=== PATIENT | male | born 1960 | race African-American/Black ===

== ENCOUNTER 2017-07-26 00:49 | Emergency (ER) | payer SELFPAY ==
[2017-07-26] MEDS ORDERED: Acetaminophen 500 MG Tab PO ONE (01:12)
[2017-07-26] MEDS ORDERED: Sodium Chloride 0.9% 10 ML Syringe FLUSH PRN (01:12)
[2017-07-26] MEDS ORDERED: Sodium Chloride 0.9% 1,000 ML IV ONE ×2 (01:12→02:41)
[2017-07-26] MEDS ORDERED: Sodium Chloride 0.9% 2.5 ML Syringe FLUSH PRN (01:12)
[2017-07-26] MEDS ORDERED: Albuterol/Ipratropium 3.0-0.5 MG/3 ML Neb Soln NEB ONE (01:17)
--- NOTE | 2017-07-26 01:22 | EDM.PDOC ---
ED HPI GENERAL MEDICAL PROBLEM - General Chief Complaint: General Stated Complaint: FLU Time Seen by Provider: 07/26/17 01:04 - History of Present Illness INITIAL COMMENTS - FREE TEXT/NARRATIVE: HISTORY AND PHYSICAL: History of present illness: The patient is a 56-year-old male with a 2 to three-day history of fevers cough which is nonproductive congestion shortness of breath sore throat body aches and malaise. He says that he is sore from coughing and he has chest discomfort because of the cough. Patient has not had abdominal pain or vomiting but he does say that when he coughs very hard he will have some diarrhea. Patient did not get his influenza shot this year and says he has had "a touch of bronchitis " in the past and he does have a history of tobacco use. He has never been diagnosed with asthma or COPD. Patient has not taken any medications for fevers since yesterday late afternoon. He has used Mucinex only today. Patient has been hydrating with normal urine output. Patient says he feels like there is phlegm and congestion in his lungs but he can't get it up. Patient does not have a local family provider Review of systems: As per history of present illness and below otherwise all systems reviewed and negative. Past medical history: As per history of present illness and as reviewed below otherwise noncontributory. Surgical history: As per history of present illness and as reviewed below otherwise noncontributory. Social history: No reported history of drug or alcohol abuse. Family history: As per history of present illness and as reviewed below otherwise noncontributory. Physical exam: Gen.: Well-developed well-nourished man who is not breathless on my evaluation and his initial O2 sat on room air was 92%. His temp was 38.3 and he was tachycardic on my evaluation. HEENT: Atraumatic, normocephalic, pupils reactive, negative for conjunctival pallor or scleral icterus, mucous membranes tacky/pasty, throat clear, neck supple, nontender, trachea midline. There is no cervical adenopathy or nuchal rigidity Lungs: Diminished breath sounds at the bases and coarse breath sounds with rhonchi throughout with some expiratory wheezing, there is no gross work of breathing breath sounds equal bilaterally, chest nontender. Heart: S1S2, regular rhythm and tachycardic rate of my evaluation, negative for clicks, rubs, or JVD. Abdomen: Soft, nondistended, nontender. Negative for masses or hepatosplenomegaly. Family hypoactive bowel sounds and slight tympany on percussion of the upper abdomen Pelvis: Stable nontender. Genitourinary: Deferred. Rectal: Deferred. Extremities: Atraumatic, negative for cords or calf pain. Neurovascular unremarkable. No pedal edema Neuro: Awake, alert, oriented. Cranial nerves II through XII unremarkable. Cerebellum unremarkable. Motor and sensory unremarkable throughout. Exam nonfocal. Diagnostics: EKG CBC CMP influenza rapid strep lactic acid, blood cultures if indicated, chest x-ray Therapeutics: Tylenol IV O2 monitor IV fluids duo neb spacer and spacer teaching Solu-Medrol Motrin 0210: After the duo neb the patient is moving air much better and no longer has wheezing or coarse breath sounds. His O2 sats on room air are running 94-97% on my evaluation. He is currently still receiving IV fluids and he is still tachycardic which we will continue to monitor. He is aware that all testing results up to this point are negative. We will give him a spacer and spacer teaching as well as Solu-Medrol. Patient has been coughing in the emergency department which looks mostly white and is a little thick. His temp is still elevated I will give Motrin 0340: Heart rate is improved and patient is now afebrile. We will give spacer for albuterol at home as well as prednisone and antibiotics Impression: Acute bronchitis Definitive disposition and diagnosis as appropriate pending reevaluation and review of above. chest Pain Score (Numeric/FACES): 9 abdomen Pain Score (Numeric/FACES): 8 throat Pain Score (Numeric/FACES): 10 - Related Data Allergies Allergy/AdvReac Type Severity Reaction Status Date / Time No Known Allergies Allergy Verified 07/26/17 01:14 Home Meds: Home Meds . [No Known Home Meds] 07/26/17 [History] ED ROS GENERAL - Review of Systems Review Of Systems: ROS reveals no pertinent complaints other than HPI. ED EXAM, GENERAL - Physical Exam Exam: See Below (See dictation) Course - Vital Signs Last Recorded V/S: Last Vital Signs Temp 37.6 C 07/26/17 03:39 Pulse 113 H 07/26/17 03:39 Resp 18 07/26/17 03:39 BP 123/83 07/26/17 03:39 Pulse Ox 95 07/26/17 03:39 - Orders/Labs/Meds Orders: Active Orders 24 hr Category Date Time Status Cardiac Monitoring [RC] . DIRECTED Care 07/26/17 01:12 Active Communication Order [RC] STAT Care 07/26/17 02:17 Active EKG Documentation Completion [RC] STAT Care 07/26/17 01:12 Active Oxygen Therapy, ED [RC] ASDIRECTED Care 07/26/17 01:18 Active Pulse Oximetry [RC] ASDIRECTED Care 07/26/17 01:12 Active RT Aerosol Therapy [RC] ASDIRECTED Care 07/26/17 01:17 Active Chest 2V [CR] Stat Exams 07/26/17 01:12 Taken CULTURE STREP A CONFIRMATION [] Stat Lab 07/26/17 01:24 Results STREP SCRN A RAPID W CULT CONF [] Stat Lab 07/26/17 01:24 Results Sodium Chloride 0.9% [Saline Flush] Med 07/26/17 01:12 Active 10 ml FLUSH ASDIRECTED PRN Sodium Chloride 0.9% [Saline Flush] Med 07/26/17 01:12 Active 2.5 ml FLUSH ASDIRECTED PRN Saline Lock Insert [OM.PC] Stat Oth 07/26/17 01:12 Ordered Medication Orders Sodium Chloride (Saline Flush) 10 ml FLUSH ASDIRECTED PRN PRN Reason: Keep Vein Open Last Admin: 07/26/17 01:34 Dose: 10 ml Sodium Chloride (Saline Flush) 2.5 ml FLUSH ASDIRECTED PRN PRN Reason: Keep Vein Open Last Admin: 07/26/17 01:34 Dose: 2.5 ml Labs: Laboratory Tests 07/26/17 07/26/17 07/26/17 Range/Units 01:21 01:21 01:21 WBC 6.06 (4.0-11.0) K/uL RBC 5.71 (4.50-5.90) M/uL Hgb 15.4 (13.0-17.0) g/dL Hct 46.0 (38.0-50.0) % MCV 80.6 (80.0-98.0) fL MCH 27.0 (27.0-32.0) pg MCHC 33.5 (31.0-37.0) g/dL RDW Std Deviation 44.7 (28.0-62.0) fl RDW Coeff of Jj 15 (11.0-15.0) % Plt Count 175 (150-400) K/uL MPV 10.80 (7.40-12.00) fL Neut % (Auto) 85.3 H (48.0-80.0) % Lymph % (Auto) 8.7 L (16.0-40.0) % [place] % (Auto) 5.1 (0.0-15.0) % Eos % (Auto) 0.7 (0.0-7.0) % Baso % (Auto) 0.2 (0.0-1.5) % Neut # (Auto) 5.2 (1.4-5.7) K/uL Lymph # (Auto) 0.5 L (0.6-2.4) K/uL [place] # (Auto) 0.3 (0.0-0.8) K/uL Eos # (Auto) 0.0 (0.0-0.7) K/uL Baso # (Auto) 0.0 (0.0-0.1) K/uL Nucleated RBC % 0.0 /100WBC Nucleated RBCs # 0 K/uL Lactate 0.9 (0.20-2.00) mmol/L Sodium 136 (136-146) mmol/L Potassium 4.5 (3.5-5.1) mmol/L Chloride 103 (98-110) mmol/L Carbon Dioxide 25 (21-31) mmol/L BUN 14 (6.0-23.0) mg/dL Creatinine 1.1 (0.6-1.5) mg/dL Est Cr Clr Drug Dosing TNP Estimated GFR (MDRD) > 60.0 ml/min Glucose 124 H (60-110) mg/dL Calcium 9.1 (8.8-10.8) mg/dL Total Bilirubin 0.4 (0.1-1.5) mg/dL AST 36 (5-40) IU/L ALT 27 (8-54) IU/L Alkaline Phosphatase 91 (40-150) Total Protein 7.5 (6.0-8.0) g/dL Albumin 4.1 (3.5-5.0) g/dL Globulin 3.4 (2.0-3.5) g/dL Albumin/Globulin Ratio 1.2 L (1.3-2.8) Meds: Medications Generic Name Dose Route Start Last Admin Trade Name Freq PRN Reason Stop Dose Admin Sodium Chloride 10 ml 07/26/17 01:12 07/26/17 01:34 Saline Flush FLUSH 10 ml ASDIRECTED PRN Administration Keep Vein Open Sodium Chloride 2.5 ml 07/26/17 01:12 07/26/17 01:34 Saline Flush FLUSH 2.5 ml ASDIRECTED PRN Administration Keep Vein Open Discontinued Medications Generic Name Dose Route Start Last Admin Trade Name Freq PRN Reason Stop Dose Admin Acetaminophen 1,000 mg 07/26/17 01:12 07/26/17 01:33 Tylenol Extra Strength PO 07/26/17 01:13 1,000 mg ONETIME ONE Administration Albuterol/Ipratropium 3 ml 07/26/17 01:17 07/26/17 01:36 Duoneb 3.0-0.5 Mg/3 Ml NEB 07/26/17 01:18 3 ml ONETIME ONE Administration Sodium Chloride 1,000 mls @ 999 mls/hr 07/26/17 01:12 07/26/17 01:38 Normal Saline IV 07/26/17 02:12 999 mls/hr STAT ONE Administration Sodium Chloride 1,000 mls @ 999 mls/hr 07/26/17 02:41 07/26/17 02:47 Normal Saline IV 07/26/17 03:41 999 mls/hr STAT ONE Administration Ibuprofen 800 mg 07/26/17 02:41 07/26/17 02:46 Motrin PO 07/26/17 02:42 800 mg ONETIME ONE Administration Methylprednisolone Sodium Succinate 125 mg 07/26/17 02:12 07/26/17 02:23 Solu-Medrol IVPUSH 07/26/17 02:13 125 mg ONETIME ONE Administration Departure - Departure Time of Disposition: 03:43 Disposition: Home, Self-Care 01 Condition: Good Clinical Impression: Acute bronchitis with bronchospasm - Discharge Information Referrals: PCP,None [Primary Care Provider] - Forms: ED Department Discharge Additional Instructions: The following information is given to patients seen in the emergency department who are being discharged to home. This information is to outline your options for follow-up care. We provide all patients seen in our emergency department with a follow-up referral. The need for follow-up, as well as the timing and circumstances, are variable depending upon the specifics of your emergency department visit. If you don't have a primary care physician on staff, we will provide you with a referral. We always advise you to contact your personal physician following an emergency department visit to inform them of the circumstance of the visit and for follow-up with them and/or the need for any referrals to a consulting specialist. The emergency department will also refer you to a specialist when appropriate. This referral assures that you have the opportunity for followup care with a specialist. All of these measure are taken in an effort to provide you with optimal care, which includes your followup. Under all circumstances we always encourage you to contact your private physician who remains a resource for coordinating your care. When calling for followup care, please make the office aware that this follow-up is from your recent emergency room visit. If for any reason you are refused follow-up, please contact the [facility] emergency department at and ask to speak to the emergency department charge nurse. [facility] Primary care- Internal Medicine and [place] [phone] Please push hydration and use [id number] Tylenol or ibuprofen for fevers/ elevated temperature. Please try to reduce and/or stop smoking. Please call our clinic tomorrow for a follow-up appointment and return to ER as needed and as discussed. You have been prescribed an albuterol inhaler from [employer] and had been given a spacer for use. You have also been given prednisone and please take all prescriptions as directed. You have also been given Zithromax. - My Orders Last 24 Hours: My Active Orders 07/26/17 01:12 Cardiac Monitoring [RC] . DIRECTED EKG Documentation Completion [RC] STAT Pulse Oximetry [RC] ASDIRECTED Chest 2V [CR] Stat Sodium Chloride 0.9% [Saline Flush] 10 ml FLUSH ASDIRECTED PRN Sodium Chloride 0.9% [Saline Flush] 2.5 ml FLUSH ASDIRECTED PRN Saline Lock Insert [OM.PC] Stat 07/26/17 01:17 RT Aerosol Therapy [RC] ASDIRECTED 07/26/17 01:18 Oxygen Therapy, ED [RC] ASDIRECTED 07/26/17 01:24 CULTURE STREP A CONFIRMATION [RM] Stat STREP SCRN A RAPID W CULT CONF [RM] Stat 07/26/17 02:17 Communication Order [RC] STAT - Assessment/Plan Last 24 Hours: My Active Orders 07/26/17 01:12 Cardiac Monitoring [RC] . DIRECTED EKG Documentation Completion [RC] STAT Pulse Oximetry [RC] ASDIRECTED Chest 2V [CR] Stat Sodium Chloride 0.9% [Saline Flush] 10 ml FLUSH ASDIRECTED PRN Sodium Chloride 0.9% [Saline Flush] 2.5 ml FLUSH ASDIRECTED PRN Saline Lock Insert [OM.PC] Stat 07/26/17 01:17 RT Aerosol Therapy [RC] ASDIRECTED 07/26/17 01:18 Oxygen Therapy, ED [RC] ASDIRECTED 07/26/17 01:24 CULTURE STREP A CONFIRMATION [RM] Stat STREP SCRN A RAPID W CULT CONF [RM] Stat 07/26/17 02:17 Communication Order [RC] STAT
[2017-07-26 01:53] LABS: CHLORIDE,CL 103 mmol/L (98-110); SODIUM,NA 136 mmol/L (136-146)
[2017-07-26] MEDS ORDERED: methylPREDNISolone Sodium Succinate 125 MG/2 ML SDV IVPUSH ONE (02:12)
[2017-07-26] MEDS ORDERED: Ibuprofen 800 MG Tab PO ONE (02:41)
--- NOTE | 2017-07-26 10:50 | CR ---
EXAM DATE: 07/26/17 PATIENT'S AGE: 56 Patient: BEATA SALINAS Facility: [place], [place] Site . Site : 1960 Study: XRay Chest [id number]/8/2018 2:01:46 AM Ordering Physician: Washington Ardon Final Report: Indication: Cough. Shortness of breath Technique: Chest 2 views Comparison: None Findings/Impression: Cardiovascular and mediastinum: Heart size and vasculature are normal in caliber and appearance. Mediastinum is within normal limits. Lungs and pleural spaces: No consolidation or pleural effusions. A small nodular opacity in the lateral right base could represent a granuloma. Followup to ensure stability. Bones and soft tissues: No significant findings. Dictated by Maciej Spears MD @ 07/26/2017 2:42:58 AM Dictated by: Maciej Spears MD @ 07/26/2017 02:43:02 (Electronic Signature) Report Signed by Proxy. BOBBY
== END 2017-07-26 04:01 | disposition home or self-care (01) ==
LOC: MW.ED 00:49
DX: J20.9 Acute bronchitis, unspecified (principal)
CPT/HCPCS: 36415; 71046; 80053; 83605; 85025; 87081; 87804; 87880; 93005; 94640; 96361; 96374; 99285; A9270; J2930; J7040; 99284

== ENCOUNTER 2017-08-17 17:08 | Emergency (ER) | payer BC ==
[2017-08-17] MEDS ORDERED: cefTRIAXone 250 MG Vial IM ONE (18:18)
[2017-08-17] MEDS ORDERED: Azithromycin 250 MG Tab PO ONE (18:18)
--- NOTE | 2017-08-17 18:18 | EDM.PDOC ---
<Reva Delarosa - Last Filed: 08/17/17 18:46> ED HPI GENERAL MEDICAL PROBLEM - General Chief Complaint: Genitourinary Problem Stated Complaint: SWOLLEN TESTICLE Time Seen by Provider: 08/17/17 17:50 - History of Present Illness INITIAL COMMENTS - FREE TEXT/NARRATIVE: Dr. Delarosa dictating addendum note as a supervising physician on this case. I agree with history physical as above and he personally evaluated the patient. On my evaluation the testicles themselves appear to be of normal size and are not swollen or specifically tender but the scrotal skin is very thickened bilaterally left greater than right. I do not feel any areas of fluctuance or any discrete masses or lesions but more of a generalized thickening and induration. We will proceed with testing as above and disposition accordingly. - Related Data Allergies Allergy/AdvReac Type Severity Reaction Status Date / Time No Known Allergies Allergy Verified 08/17/17 17:16 Home Meds: Home Meds . [No Known Home Meds] 07/26/17 [History] Course - Vital Signs Last Recorded V/S: Last Vital Signs Temp 98.8 F 08/17/17 17:18 Pulse 97 08/17/17 17:18 Resp 16 08/17/17 17:18 BP 166/103 H 08/17/17 17:18 Pulse Ox 98 08/17/17 17:18 - Orders/Labs/Meds Orders: Active Orders 24 hr Category Date Time Status Scrotal Duplex Ltd [US] Routine Exams 08/17/17 17:48 Taken Scrotum and Contents [US] Stat Exams 08/17/17 17:48 Taken CHLAMYDIA AND GONORRHEA BY TMA Stat Lab 08/17/17 18:31 Received CULTURE URINE [RM] Stat Lab 08/17/17 18:31 Received HERPES SIMPLEX VIR 1,2 IGG/IGM [REF] Stat Lab 08/17/17 18:22 Received Labs: Laboratory Tests 08/17/17 Range/Units 18:31 Urine Color YELLOW Urine Appearance CLEAR Urine pH 6.5 (5.0-8.0) Ur Specific [place] 1.025 (1.001-1.035) Urine Protein NEGATIVE (NEGATIVE) mg/dL Urine Glucose (UA) NEGATIVE (NEGATIVE) mg/dL Urine Ketones TRACE H (NEGATIVE) mg/dL Urine Occult Blood NEGATIVE (NEGATIVE) Urine Nitrite NEGATIVE (NEGATIVE) Urine Bilirubin NEGATIVE (NEGATIVE) Urine Urobilinogen 2.0 H (<2.0) EU/dL Ur Leukocyte Esterase NEGATIVE (NEGATIVE) Urine RBC 0-1 (0-2/HPF) Urine WBC 0-1 (0-5/HPF) Ur Epithelial Cells RARE (NONE-FEW) Urine Bacteria RARE (NEGATIVE) Meds: Medications Discontinued Medications Generic Name Dose Route Start Last Admin Trade Name Parth PRN Reason Stop Dose Admin Azithromycin 1,000 mg 08/17/17 18:18 Zithromax PO 08/17/17 18:19 ONETIME ONE Ceftriaxone Sodium 250 mg 08/17/17 18:18 Rocephin IM 08/17/17 18:19 ONETIME ONE Departure - Departure Disposition: Home, Self-Care 01 Clinical Impression: Epididymitis - Discharge Information Instructions: Epididymitis Referrals: PCP,None [Primary Care Provider] - Forms: ED Department Discharge Care Plan Goals: The following information is given to patients seen in the emergency department who are being discharged to home. This information is to outline your options for follow-up care. We provide all patients seen in our emergency department with a follow-up referral. The need for follow-up, as well as the timing and circumstances, are variable depending upon the specifics of your emergency department visit. If you don't have a primary care physician on staff, we will provide you with a referral. We always advise you to contact your personal physician following an emergency department visit to inform them of the circumstance of the visit and for follow-up with them and/or the need for any referrals to a consulting specialist. The emergency department will also refer you to a specialist when appropriate. This referral assures that you have the opportunity for follow-up care with a specialist. All of these measure are taken in an effort to provide you with optimal care, which includes your follow-up. Under all circumstances we always encourage you to contact your private physician who remains a resource for coordinating your care. When calling for follow-up care, please make the office aware that this follow-up is from your recent emergency room visit. If for any reason you are refused follow-up, please contact the [facility] Emergency Department at and asked to speak to the emergency department charge nurse. [facility] Primary Care [address] [place] [phone] Please call the above number to set up an appointment with primary care provider within one week following discharge from the ER. - My Orders Last 24 Hours: My Active Orders 08/17/17 17:48 Scrotal Duplex Ltd [US] Routine Scrotum and Contents [US] Stat 08/17/17 18:22 HERPES SIMPLEX VIR 1,2 IGG/IGM [REF] Stat 08/17/17 18:31 CHLAMYDIA AND GONORRHEA BY TMA Stat CULTURE URINE [RM] Stat - Assessment/Plan Last 24 Hours: My Active Orders 08/17/17 17:48 Scrotal Duplex Ltd [US] Routine Scrotum and Contents [US] Stat 08/17/17 18:22 HERPES SIMPLEX VIR 1,2 IGG/IGM [REF] Stat 08/17/17 18:31 CHLAMYDIA AND GONORRHEA BY TMA Stat CULTURE URINE [RM] Stat <Thad Edwards - Last Filed: 08/17/17 19:08> ED HPI GENERAL MEDICAL PROBLEM - General Source of Information: Reports: Patient History Limitations: Reports: No Limitations - History of Present Illness INITIAL COMMENTS - FREE TEXT/NARRATIVE: HISTORY AND PHYSICAL: History of present illness: 56-year-old male presents to the ER with a chief complaint of a mass on the left side of the scrotum and also bumps on the right side of his scrotum. The mass on the left side of the scrotum has been present since Sunday and has gotten bigger over the last 4 days. Patient has never had this type of bump in the scrotum before. He has no history of STDs. Has not been sexually active over the past 3 months. When he is sexually active, the patient does use condoms. He denies any dysuria or hematuria or increased frequency/urgency. He denies any discharge from the head of the penis. Patient also has small bumps on the right side of his scrotum. At times it is pruritic and the patient will apply cortisone cream which does help with the itching. He notes that the rash seems to be getting worse. Again, he denies any history of genital herpes. Patient is also told that his blood pressure today is 166/103. He states that he does have a history of high blood pressure but has never been on medication. He thinks his blood pressure is high secondary to being in the ER. He denies any chest pain, palpitations, vision problems, headache, neurological deficits. Review of systems: As per history of present illness and below otherwise all systems reviewed and negative. Past medical history: As per history of present illness and as reviewed below otherwise noncontributory. Surgical history: As per history of present illness and as reviewed below otherwise noncontributory. Social history: No reported history of drug or alcohol abuse. Family history: As per history of present illness and as reviewed below otherwise noncontributory. Physical exam: HEENT: Atraumatic, normocephalic, pupils reactive, negative for conjunctival pallor or scleral icterus, mucous membranes moist, throat clear, neck supple, nontender, trachea midline. Lungs: Clear to auscultation, breath sounds equal bilaterally, chest nontender. Heart: S1S2, regular, negative for clicks, rubs, or JVD. Abdomen: Soft, nondistended, nontender. Negative for masses or hepatosplenomegaly. Negative for costovertebral tenderness. Pelvis: Stable nontender. Genitourinary: Left testicle with palpation does appear normal. The masses appear to be in the scrotum and not on the testicle. It is not tender to palpation. There are some small bumps on the right side of the scrotum. it does have the appearance of genital herpes. No bleeding or discharge appreciated from the lesions. Neuro: Awake, alert, oriented. Cranial nerves II through XII unremarkable. Cerebellum unremarkable. Motor and sensory unremarkable throughout. Exam nonfocal. Diagnostics: Gonorrhea and Chlamydia, herpes, UA with urine culture, scrotal ultrasound Scrotal ultrasound shows possible epididymitis. Therapeutics: 250 mg IM of Rocephin and 1 g of azithromycin by mouth. Impression: #1. Epididymitis Plan: #1. Patient was given a 250 mg IM injection of Rocephin and 1 g of azithromycin by mouth. #2. Patient will be set up with a PCP and follow-up within 1 week of this ER visit. Definitive disposition and diagnosis as appropriate pending reevaluation and review of above. Past Medical History - Past Health History Medical/Surgical History: Denies Medical/Surgical History Cardiovascular History: Reports: Hypertension Respiratory History: Reports: Bronchitis, Recurrent - Past Surgical History Cardiovascular Surgical History: Reports: None Social & Family History - Family History Family Medical History: Noncontributory - Tobacco Use Smoking Status *Q: Current Every Day Smoker Years of Tobacco use: 35 Packs/Tins Daily: 0.5 - Caffeine Use Caffeine Use: Reports: Coffee - Recreational Drug Use Recreational Drug Use: No ED ROS GENERAL - Review of Systems Review Of Systems: ROS reveals no pertinent complaints other than HPI. ED EXAM, RENAL/ - Physical Exam Exam: See Below Text/Narrative:: See dictation Course - Orders/Labs/Meds Labs: Laboratory Tests 08/17/17 Range/Units 18:31 Urine Color YELLOW Urine Appearance CLEAR Urine pH 6.5 (5.0-8.0) Ur Specific [place] 1.025 (1.001-1.035) Urine Protein NEGATIVE (NEGATIVE) mg/dL Urine Glucose (UA) NEGATIVE (NEGATIVE) mg/dL Urine Ketones TRACE H (NEGATIVE) mg/dL Urine Occult Blood NEGATIVE (NEGATIVE) Urine Nitrite NEGATIVE (NEGATIVE) Urine Bilirubin NEGATIVE (NEGATIVE) Urine Urobilinogen 2.0 H (<2.0) EU/dL Ur Leukocyte Esterase NEGATIVE (NEGATIVE) Urine RBC 0-1 (0-2/HPF) Urine WBC 0-1 (0-5/HPF) Ur Epithelial Cells RARE (NONE-FEW) Urine Bacteria RARE (NEGATIVE) Meds: Medications Discontinued Medications Generic Name Dose Route Start Last Admin Trade Name Freq PRN Reason Stop Dose Admin Azithromycin 1,000 mg 08/17/17 18:18 Zithromax PO 08/17/17 18:19 ONETIME ONE Ceftriaxone Sodium 250 mg 08/17/17 18:18 Rocephin IM 08/17/17 18:19 ONETIME ONE Departure - Departure Time of Disposition: 19:00 Condition: Good
[2017-08-17] MEDS ORDERED: Lidocaine 1% 4 ML ONE (19:10)
--- NOTE | 2017-08-20 05:12 | US ---
EXAM DATE: 08/17/17 PATIENT'S AGE: 56 Patient: BEATA SALINAS Facility: [place], [place] Site . Site : 1960 Study: US Testicle Left left scrotal mass-08/17/2017 6:24:54 PM Ordering Physician: Grace Oneil Final Report: INDICATION: Left scrotal mass. TECHNIQUE: Grayscale and color Doppler sonography performed. FINDINGS: The right testicle is 3.8 x 2.2 x 3.1 cm for a volume of 17.7 cc. There is no right testicular mass identified. Normal-appearing color flow is present. The right epididymis is normal. The left testicle is 4.5 x 1.9 x 4.1 cm with a volume of 23.7 cc. There is a hypoechoic, heterogeneous area within the left scrotum measuring 2.3 x 1.1 x 2.1 cm with increased surrounding color flow. This could represent an area of inflammation such as epididymitis. An extratesticular mass is not excludable. Therefore, follow-up ultrasound examination recommended in a reasonable time. No hydrocele/varicocele. IMPRESSION: 1. Normal ultrasound appearance of the testicles bilaterally. 2. Small heterogeneous predominantly hypoechoic mass in the left scrotum with increased color flow. Considerations would include epididymitis or extratesticular mass. Follow-up ultrasound examination recommended, such as 3-4 weeks at her or sooner, if clinically indicated. Dictated by Víctor Solorzano MD @ Aug 17 2017 6:29PM (Electronic Signature) Report Signed by Proxy. BOBBY
--- NOTE | 2017-08-20 05:13 | US ---
EXAM DATE: 08/17/17 PATIENT'S AGE: 56 Patient: BEATA SALINAS Facility: [place], [place] Site . Site : 1960 Study: US Testicle Left left scrotal mass-08/17/2017 6:24:54 PM Ordering Physician: Grace Oneil Final Report: INDICATION: Left scrotal mass. TECHNIQUE: Grayscale and color Doppler sonography performed. FINDINGS: The right testicle is 3.8 x 2.2 x 3.1 cm for a volume of 17.7 cc. There is no right testicular mass identified. Normal-appearing color flow is present. The right epididymis is normal. The left testicle is 4.5 x 1.9 x 4.1 cm with a volume of 23.7 cc. There is a hypoechoic, heterogeneous area within the left scrotum measuring 2.3 x 1.1 x 2.1 cm with increased surrounding color flow. This could represent an area of inflammation such as epididymitis. An extratesticular mass is not excludable. Therefore, follow-up ultrasound examination recommended in a reasonable time. No hydrocele/varicocele. IMPRESSION: 1. Normal ultrasound appearance of the testicles bilaterally. 2. Small heterogeneous predominantly hypoechoic mass in the left scrotum with increased color flow. Considerations would include epididymitis or extratesticular mass. Follow-up ultrasound examination recommended, such as 3-4 weeks at her or sooner, if clinically indicated. Dictated by Víctor Solorzano MD @ Aug 17 2017 6:29PM (Electronic Signature) Report Signed by Proxy. BOBBY
== END 2017-08-17 19:34 | disposition home or self-care (01) ==
LOC: MW.ED 17:08
DX: N45.1 Epididymitis (principal); F17.210 Nicotine dependence, cigarettes, uncomplicated; I10 Essential (primary) hypertension
CPT/HCPCS: 76870; 81001; 86694; 86695; 86696; 87086; 87491; 87591; 93976; 96372; 99283; A9270; J0696; 36415; 87529

== ENCOUNTER 2018-03-08 06:24 | Emergency (ER) | payer BC ==
--- NOTE | 2018-03-08 06:36 | EDM.PDOC ---
ED HPI GENERAL MEDICAL PROBLEM - General Chief Complaint: Skin Complaint Stated Complaint: SOMETHING ON BOTTOM Time Seen by Provider: 03/08/18 06:50 Source of Information: Reports: Patient History Limitations: Reports: No Limitations - History of Present Illness INITIAL COMMENTS - FREE TEXT/NARRATIVE: HISTORY AND PHYSICAL: History of present illness: 57-year-old male presenting to the emergency department with chief complaint of pain and inflammation in his left buttock 3 days. Patient states that on Sunday approximately 3 days ago he began to have some pain in his left buttock. He thinks it is a "boil". States that he has never had similar in the past. Yesterday states that he was able to squeeze the area and there was some pus and blood exuded. Otherwise he is generally healthy. Takes no daily medications. He denies any associated fever, chills, nausea, vomiting, diarrhea, or other signs of systemic infection. On exam there is a 1 cm x 0.5 cm ulceration with surrounding induration which is tender to palpation. Total side of induration is approximately 4 x 5 cm. Rectal exam negative. Review of systems: As per history of present illness and below otherwise all systems reviewed and negative. Past medical history: As per history of present illness and as reviewed below otherwise noncontributory. Surgical history: As per history of present illness and as reviewed below otherwise noncontributory. Social history: No reported history of drug or alcohol abuse. Family history: As per history of present illness and as reviewed below otherwise noncontributory. Physical exam: HEENT: Atraumatic, normocephalic, pupils reactive, negative for conjunctival pallor or scleral icterus, mucous membranes moist, throat clear, neck supple, nontender, trachea midline. Lungs: Clear to auscultation, breath sounds equal bilaterally, chest nontender. Heart: S1S2, regular, negative for clicks, rubs, or JVD. Abdomen: Soft, nondistended, nontender. Negative for masses or hepatosplenomegaly. Negative for costovertebral tenderness. Pelvis: Stable nontender. Genitourinary: Deferred. Rectal: Negative. Tone Extremities: Atraumatic, negative for cords or calf pain. Neurovascular unremarkable. Neuro: Awake, alert, oriented. Cranial nerves II through XII unremarkable. Cerebellum unremarkable. Motor and sensory unremarkable throughout. Exam nonfocal. Diagnostics: [] Therapeutics: Incision and drainage Bactrim Impression: Cellulitis with abscess Buttock pain Plan: Using 3.5 mL of 1% lidocaine with epi I was able to adequately anesthetize area of inflammation. Using a 11 blade I made a small 1 cm vertical incision. Approximately 15-20 mL's of purulent drainage was exuded from abscess. Patient tolerated procedure well. Area was packed with iodoform gauze. Patient was discharged in good condition with instructions to follow-up with primary care provider and remove gauze in 24 hours. I also gave him the rest of the iodoform to repack if needed. We also discussed worsening symptoms including increased fever, pain, redness, swelling, and drainage. He should return the emergency department immediately if he is having any of these. Patient is in understanding and was discharged in good condition. Definitive disposition and diagnosis as appropriate pending reevaluation and review of above. Left Rectal Pain Score (Numeric/FACES): 1 - Related Data Allergies Allergy/AdvReac Type Severity Reaction Status Date / Time No Known Allergies Allergy Verified 03/08/18 06:34 Home Meds: Home Meds . [No Known Home Meds] 07/26/17 [History] Past Medical History - Past Health History Medical/Surgical History: Denies Medical/Surgical History Cardiovascular History: Reports: Hypertension Respiratory History: Reports: Bronchitis, Recurrent - Past Surgical History Cardiovascular Surgical History: Reports: None Social & Family History - Family History Family Medical History: Noncontributory - Caffeine Use Caffeine Use: Reports: Coffee ED ROS GENERAL - Review of Systems Review Of Systems: ROS reveals no pertinent complaints other than HPI. ED EXAM, SKIN/RASH Exam: See Below Exam Limited By: No Limitations General Appearance: Alert, WD/WN, No Apparent Distress Ears: Normal External Exam, Normal Canal, Hearing Grossly Normal, Normal TMs Nose: Normal Inspection, Normal Mucosa, No Blood Throat/Mouth: Normal Inspection, Normal Lips, Normal Teeth, Normal Gums, Normal Oropharynx, Normal Voice, No Airway Compromise Head: Atraumatic, Normocephalic Neck: Normal Inspection, Supple, Non-Tender, Full Range of Motion Respiratory/Chest: No Respiratory Distress, Lungs Clear, Normal Breath Sounds, No Accessory Muscle Use, Chest Non-Tender Cardiovascular: Normal Peripheral Pulses, Regular Rate, Rhythm, No Edema, No Gallop, No JVD, No Murmur, No Rub GI/Abdominal: Normal Bowel Sounds, Soft, Non-Tender, No Organomegaly, No Distention, No Abnormal Bruit, No Mass (Male) Exam: No Hernia, Normal Inspection, Normal Prostate, Circumcised Rectal (Males) Exam: Normal Exam, Normal Rectal Tone, Prostate Normal Back Exam: Normal Inspection, Full Range of Motion, NT Extremities: Normal Inspection, Normal Range of Motion, Non-Tender, No Pedal Edema, Normal Capillary Refill Neurological: Alert, Oriented, CN II-XII Intact, Normal Cognition, Normal Gait, Normal Reflexes, No Motor/Sensory Deficits Psychiatric: Normal Affect, Normal Mood Lymphatic: No Adenopathy Course - Vital Signs Last Recorded V/S: Last Vital Signs Temp 96.3 F 03/08/18 06:36 Pulse 95 03/08/18 06:36 Resp 20 03/08/18 06:36 BP 146/89 H 03/08/18 06:36 Pulse Ox 98 03/08/18 06:36 - Orders/Labs/Meds Meds: Medications Discontinued Medications Generic Name Dose Route Start Last Admin Trade Name Parth PRN Reason Stop Dose Admin Lidocaine/Epinephrine 20 ml 03/08/18 06:47 03/08/18 06:53 Xylocaine 1% With Epinephrine 1:100,000 INJECT 03/08/18 06:48 20 ml ONETIME ONE Administration Departure - Departure Time of Disposition: 07:13 Disposition: Home, Self-Care 01 Condition: Good Clinical Impression: Cellulitis and abscess of buttock, Left buttock pain - Discharge Information Referrals: PCP,None [Primary Care Provider] - Forms: ED Department Discharge Additional Instructions: My general discharge The following information is given to patients seen in the emergency department who are being discharged to home. This information is to outline your options for follow-up care. We provide all patients seen in our emergency department with a follow-up referral. The need for follow-up, as well as the timing and circumstances, are variable depending upon the specifics of your emergency department visit. If you don't have a primary care physician on staff, we will provide you with a referral. We always advise you to contact your personal physician following an emergency department visit to inform them of the circumstance of the visit and for follow-up with them and/or the need for any referrals to a consulting specialist. The emergency department will also refer you to a specialist when appropriate. This referral assures that you have the opportunity for follow-up care with a specialist. All of these measure are taken in an effort to provide you with optimal care, which includes your follow-up. Under all circumstances we always encourage you to contact your private physician who remains a resource for coordinating your care. When calling for follow-up care, please make the office aware that this follow-up is from your recent emergency room visit. If for any reason you are refused follow-up, please contact the [facility] at and asked to speak to the emergency department charge nurse. [facility] [address] [place] [id number] Please call above number and follow-up with a primary care provider as we discussed. Be sure to tell them that you were seen in the emergency department and they want you to be seen as soon as possible. Take antibiotics as prescribed. Return to emergency department if any new or worsening symptoms as we discussed.
[2018-03-08] MEDS ORDERED: Lidocaine 1% with EPINEPHrine 1:100,000 20 ML MDV INJECT ONE (06:47)
== END 2018-03-08 07:32 | disposition home or self-care (01) ==
LOC: MW.ED 06:24
DX: L03.317 Cellulitis of buttock (principal); L02.31 Cutaneous abscess of buttock; I10 Essential (primary) hypertension
CPT/HCPCS: 99282